=== PATIENT | female | born 1990 | race American Indian/Alaskan Native ===

== ENCOUNTER 2019-11-13 10:02 | Emergency (ER) | payer SELFPAY ==
[2019-11-13 10:37] VITALS: BP 156/89
--- NOTE | 2019-11-13 13:14 | Emergency Department Report ---
ED ENT HPI - General Chief complaint: Sore Throat Stated complaint: SORE THROAT/EAR ACHE Time Seen by Provider: 11/13/19 10:55 Source: patient Mode of arrival: Ambulatory Limitations: No Limitations - History of Present Illness Initial comments: This is a 29-year-old female nontoxic, well nourished in appearance, no acute signs of distress presents to the ED with c/o of left earache with radiation to throat. Patient denies any ear drainage. Patient denies any trauma to the area. Patient denies any mastoid tenderness or tragus tenderness. Patient denies any pus or drainage. Patient denies any fever, chills, nausea, vomiting, chest pain, shortness of breath, headache or stiff neck. Patient denies any allergies or significant past medical history. MD complaint: sore throat, ear pain -: days(s) Location: L ear, throat Severity: mild Severity scale (0 -10): 8 Quality: aching Consistency: constant Improves with: none Worsens with: none Associated Symptoms: sore throat, other (left earache). denies: fever, cough, gum swelling, toothache, pain with swallowing, tinnitus, hearing loss, discharge from ear, rhinorrhea - Related Data Previous Rx's Medication Instructions Recorded Last Taken Type Amoxicillin [Amoxicillin TAB] 875 mg PO BID #20 tablet 11/13/19 Unknown Rx Ibuprofen [Motrin] 600 mg PO Q8H PRN #20 tablet 11/13/19 Unknown Rx Allergies Allergy/AdvReac Type Severity Reaction Status Date / Time No Known Allergies Allergy Unverified 11/13/19 10:04 ED Dental HPI - General Chief complaint: Sore Throat Stated complaint: SORE THROAT/EAR ACHE Time Seen by Provider: 11/13/19 10:55 Source: patient Mode of arrival: Ambulatory Limitations: No Limitations - Related Data Previous Rx's Medication Instructions Recorded Last Taken Type Amoxicillin [Amoxicillin TAB] 875 mg PO BID #20 tablet 11/13/19 Unknown Rx Ibuprofen [Motrin] 600 mg PO Q8H PRN #20 tablet 11/13/19 Unknown Rx Allergies Allergy/AdvReac Type Severity Reaction Status Date / Time No Known Allergies Allergy Unverified 11/13/19 10:04 ED Review of Systems ROS: Stated complaint: SORE THROAT/EAR ACHE Other details as noted in HPI Constitutional: denies: chills, fever Eyes: denies: eye pain, eye discharge, vision change ENT: ear pain, throat pain Respiratory: denies: cough, shortness of breath, wheezing Cardiovascular: denies: chest pain, palpitations Endocrine: no symptoms reported Gastrointestinal: denies: abdominal pain, nausea, diarrhea Genitourinary: denies: urgency, dysuria, discharge Musculoskeletal: denies: back pain, joint swelling, arthralgia Skin: denies: rash, lesions Neurological: denies: headache, weakness, paresthesias Psychiatric: denies: anxiety, depression Hematological/Lymphatic: denies: easy bleeding, easy bruising ED Past Medical Hx - Past Medical History Previous Medical History?: No - Surgical History Past Surgical History?: No - Social History Smoking Status: Never Smoker - Medications Home Medications: Home Medications Medication Instructions Recorded Confirmed Last Taken Type Amoxicillin [Amoxicillin TAB] 875 mg PO BID #20 tablet 11/13/19 Unknown Rx Ibuprofen [Motrin] 600 mg PO Q8H PRN #20 tablet 11/13/19 Unknown Rx ED Physical Exam - General Limitations: No Limitations General appearance: alert, in no apparent distress - Head Head exam: Present: atraumatic, normocephalic - Expanded ENT Exam Expanded Ear exam: Present: normal external inspection TM/Canal exam: Erythema: Left TM, Bulging: Left TM Mouth exam: Present: normal external inspection. Absent: drooling, trismus, muffled voice Teeth exam: Present: normal inspection Throat exam: Positive: normal inspection, other (uvula midline). Negative: tonsillar erythema, tonsillomegaly, tonsillar exudate, R peritonsillar mass, L peritonsillar mass - Neck Neck exam: Present: normal inspection, full ROM. Absent: tenderness, meningismus, lymphadenopathy - Extremities Exam Extremities exam: Present: normal inspection, full ROM - Back Exam Back exam: Present: normal inspection, full ROM. Absent: tenderness, CVA tenderness (R), CVA tenderness (L), muscle spasm, paraspinal tenderness, vertebral tenderness, rash noted - Neurological Exam Neurological exam: Present: alert, oriented X3, normal gait - Psychiatric Psychiatric exam: Present: normal affect, normal mood - Skin Skin exam: Present: warm, dry, intact, normal color. Absent: rash ED Course Vital Signs 11/13/19 10:36 Temperature 98.9 F Pulse Rate 62 Respiratory 18 Rate Blood Pressure 156/89 O2 Sat by Pulse 100 Oximetry - Reevaluation(s) Reevaluation #1: 11/13/19 13:12 Patient is speaking in full sentences with no signs of distress noted. ED Medical Decision Making - Medical Decision Making Patient was instructed to Follow-up with a primary care doctor in 3-5 days or if symptoms worsen and continue return to emergency room as soon as possible. At time of discharge, the patient does not seem toxic or ill in appearance. No acute signs of distress noted. Patient agrees to discharge treatment plan of care. No further questions noted by the patient. Critical care attestation.: If time is entered above; I have spent that time in minutes in the direct care of this critically ill patient, excluding procedure time. ED Disposition Clinical Impression: Left otitis media Disposition: DC-01 TO HOME OR SELFCARE Is pt being admited?: No Does the pt Need Aspirin: No Condition: Stable Instructions: Otitis Media (ED) Additional Instructions: Follow-up with a primary care doctor in 3-5 days or if symptoms worsen and continue return to emergency room as soon as possible. Prescriptions: Amoxicillin [Amoxicillin TAB] 875 mg PO BID #20 tablet Ibuprofen [Motrin] 600 mg PO Q8H PRN #20 tablet PRN Reason: Pain Referrals: PRIMARY MD SANA [Primary Care Provider] - 3-5 Days KARTHIK CHOWDARY MD [Staff Physician] - 3-5 Days [facility] [Outside] - 3-5 Days Forms: Work/School Release Form(ED)
== END 2019-11-13 13:36 | disposition home or self-care (01) ==
LOC: ED 10:02
DX: H66.92 Otitis media, unspecified, left ear (principal)
CPT/HCPCS: 99282